=== PATIENT | male | born 1990 | race Caucasian/White ===

== ENCOUNTER 2022-05-08 16:52 | Emergency (ER) | payer BC ==
[2022-05-08] MEDS ORDERED: HYDROmorphone 1 MG/ML 1 ML SYRINGE IVP STA (16:58)
[2022-05-08] MEDS ORDERED: DIPH,PERTUS(ACELL)TETVAC-LF 0.5 ML VIAL IM ONE (16:58)
[2022-05-08 17:00] VITALS: BP 131/99; PULSE 98; RESP 18; TEMP 98
--- NOTE | 2022-05-08 17:24 | XR ---
EXAMINATION TYPE: XR foot limited RT DATE OF EXAM: 05/08/2022 COMPARISON: NONE HISTORY: Foot pain TECHNIQUE: Single view FINDINGS: A single lateral view of the right foot was obtained. There is apparent metallic foreign azar dy from a rake tyne projected over the proximal toes. The metatarsals appear intact. Hindfoot is inta ct. IMPRESSION: Limited exam shows evidence of soft tissue foreign body at the plantar aspect of the toes .
--- NOTE | 2022-05-08 17:34 | ED ---
General Adult HPI - General Chief complaint: Trauma Stated complaint: pitchfork impaled in right foot Time Seen by Provider: 05/08/22 16:55 Source: patient, RN notes reviewed Mode of arrival: EMS Limitations: no limitations - History of Present Illness Initial comments: Patient is a pleasant 32-year-old male presenting to the emergency department with foreign body to the right foot. Patient stepped on a rake prior to arrival. This did go through his shoe, crocks. Patient has discomfort in this area. Patient did not attempt to remove the rake. [place] did become impaled into the right foot. No other area of injury or concern. Patient did not fall back and hurt his neck or head. Last tetanus immunization was possibly more than 5 years but definitely less than 10 years. - Related Data Previous Rx's Medication Instructions Recorded Amoxic-Pot Clav 875-125Mg 1 tab PO Q12HR #10 tab 05/08/22 [Augmentin 875-125] Allergies Allergy/AdvReac Type Severity Reaction Status Date / Time No Known Allergies Allergy Verified 05/08/22 16:55 Review of Systems ROS Statement: Those systems with pertinent positive or pertinent negative responses have been documented in the HPI. ROS Other: All systems not noted in ROS Statement are negative. Constitutional: Denies: fever Eyes: Denies: eye pain ENT: Denies: ear pain Respiratory: Denies: cough, dyspnea Cardiovascular: Denies: chest pain Endocrine: Denies: fatigue Gastrointestinal: Denies: abdominal pain Genitourinary: Denies: dysuria Musculoskeletal: Reports: as per HPI. Denies: back pain Skin: Reports: as per HPI. Denies: rash Neurological: Denies: headache, weakness Past Medical History Past Medical History: No Reported History Past Surgical History: Orthopedic Surgery Past Psychological History: No Psychological Hx Reported Smoking Status: Never smoker Past Alcohol Use History: None Reported Past Drug Use History: None Reported General Exam Limitations: no limitations General appearance: alert, in no apparent distress Head exam: Present: atraumatic, normocephalic Eye exam: Present: normal appearance Neck exam: Present: normal inspection, full ROM. Absent: tenderness Respiratory exam: Present: normal lung sounds bilaterally Cardiovascular Exam: Present: regular rate, normal rhythm GI/Abdominal exam: Present: soft. Absent: tenderness Extremities exam: Present: other (Right foot. She present. There is a single of a rake impaling the plantar distal foot.) Neurological exam: Present: alert Psychiatric exam: Present: normal affect, normal mood Course Vital Signs 05/08/22 16:57 Temperature 98 F Pulse Rate 98 Respiratory 18 Rate Blood Pressure 131/99 O2 Sat by Pulse 98 Oximetry Procedures - [place]ge[place] Body Removal Soft Tissue Consent Obtained: verbal consent Site: foot Foreign Body Suspected: Metal Foreign Body Removed: yes Foreign Body Removal Technique: Other (Manual) Patient Tolerated Procedure: well, no complications Additional Comments: Following removal of rate, area was irrigated with Betadine as well as saline. Area bandaged. Medical Decision Making - Medical Decision Making Rate removed without difficulty. Exam following this does reveal a puncture wound approximately 4-5 mm distal plantar aspect of the foot near the fourth MTP. Distally patient does have good strength with flexion and extension of the toes. Sensation intact. Cap refill less than 2 seconds. Patient and family updated. Patient will be discharged with follow-up with orthopedics. Case was discussed with Dr. Conte who recommends a dose of IV penicillin and prescription for Augmentin and will follow-up with patient on Monday. - Radiology Data Radiology results: image reviewed (Original x-ray shows plantar foreign body. Repeat x-ray shows no evidence of foreign body. No fracture visualized.) Disposition Clinical Impression: Foreign body in right foot Disposition: HOME SELF-CARE Condition: Stable Instructions (If sedation given, give patient instructions): Puncture Wound (ED) Additional Instructions: prescription for anabiotic has been sent to pharmacy. Please follow-up with orthopedics on Monday for recheck, number provided. Return for increased pain, fever, redness or swelling, worsening symptoms or other concerns. Prescriptions: Amoxic-Pot Clav 875-125Mg [Augmentin 875-125] 1 tab PO Q12HR #10 tab Is patient prescribed a controlled substance at d/c from ED?: No Referrals: Magda Castorena DO [Primary Care Provider] - 1-2 days Tae Conte MD [STAFF PHYSICIAN] - 1-2 days Time of Disposition: 18:09
--- NOTE | 2022-05-08 17:51 | XR ---
EXAMINATION TYPE: XR foot complete RT DATE OF EXAM: 05/08/2022 COMPARISON: NONE HISTORY: Foreign body TECHNIQUE: 3 views FINDINGS: Metatarsals are intact. I see no fracture nor dislocation. No evidence of a foreign body. IMPRESSION: No evidence of a foreign body. No fracture.
[2022-05-08] MEDS ORDERED: traMADol 50 MG STARTER PACK 3 TAB BTL PO STA (18:17)
[2022-05-08] MEDS ORDERED: PENICILLIN G POTASSIUM 2,000,000 UNIT in DEXTROSE 5% IN WATER 100 ML IVPB ONE ×2 (18:40)
== END 2022-05-08 20:51 | disposition home or self-care (01) ==
LOC: EC 16:52
DX: S90.851A Superficial foreign body, right foot, initial encounter (principal); Z23 Encounter for immunization; W27.1XXA Contact with garden tool, initial encounter
CPT/HCPCS: 99283; 96365; 96366 ×3; 96375; 90471; 73620; 73630; 90715; J0690; J1170; J2540